=== PATIENT | male | born 1945 | race Caucasian/White ===

== ENCOUNTER 2016-11-04 16:27 | Emergency (ER) | payer MEDICARE, OTHER ==
[2016-11-04] MEDS ORDERED: NITROGLYCERIN 0.4 MG TAB SL ONE ×2 (16:30→16:35)
[2016-11-04] MEDS ORDERED: ASPIRIN 81 MG CHEWABLE CTB ONE (16:30)
[2016-11-04] MEDS ORDERED: SODIUM CHLORIDE 0.9% FLUSH 10 ML SOL IV PRN (16:31)
[2016-11-04] MEDS ORDERED: ASPIRIN 81 MG CHEWABLE CTB PO STA (16:31)
[2016-11-04] MEDS: NITROGLYCERIN 0.4 MG TAB SL PRN ×2 (16:35→16:41)
[2016-11-04] MEDS ORDERED: TICAGRELOR 90 MG TAB PO ONE ×2 (16:39→16:40)
[2016-11-04] MEDS ORDERED: HYDROMORPHONE HCL 2 MG/ML SOL IV ONE (16:41)
[2016-11-04] MEDS ORDERED: HYDROMORPHONE 1 MG/ML SYRINGE ONE (16:41)
[2016-11-04 16:42] LABS: BASOPHILS % (AUTO) 1 % (0-3); EOSINOPHILS % (AUTO) 1 % (0-9); HEMATOCRIT 41 % (39-53); MEAN CORPUSCULAR HGB CONC 36.3 gm/dl (32.0-36.0); MEAN CORPUSCULAR VOLUME 85 fL (80-100); MONOCYTES % (AUTO) 8.7 % (0-12); NEUTROPHILS % (AUTO) 80.3 % (37-80)
[2016-11-04] MEDS ORDERED: HEPARIN SODIUM 5000 U/ML SOL ONE (16:47)
[2016-11-04] MEDS ORDERED: ATROPINE 0.1 MG/ML SOL ONE (16:51)
[2016-11-04] MEDS ORDERED: HEPARIN SODIUM 5000 U/ML SOL IV ONE (17:00)
[2016-11-04 17:03] LABS: ALBUMIN 3.7 gm/dl (3.4-5.0); ALT 40 IU/L (14-63); CALCIUM 8.7 mg/dl (8.5-10.1); GLOM FILT RATE 66 mL/min (>60); POTASSIUM 4.5 mMol/L (3.5-5.1); SODIUM 138 mMol/L (136-145)
[2016-11-04 17:08] VITALS: TEMP 98.9
[2016-11-04 17:16] VITALS: RESP 18
[2016-11-04 17:18] VITALS: BP 106/54; PULSE 55; O2SAT 96
== END 2016-11-04 16:59 | disposition short-term general hospital (02) | DRG 282 ==
LOC: ED 16:27
DX: I21.19 ST elevation (STEMI) myocardial infarction involving other coronary artery of inferior wall (principal)
CPT/HCPCS: 71010; 80053; 82550; 84484; 85025; 85610; 85730; 93005; 99291; J0461; J1644; J1170